=== PATIENT | male | born 1985 | race African-American/Black ===

== ENCOUNTER 2018-01-25 23:05 | Observation (INO) | payer OTHER ==
[~2018-01-25] VITALS: Ht 185.4 cm; Wt 100.0 kg
[~2018-01-25 23:05] MED LIST: DIPH25CA61 IM; HALO5AMP3 IM
[2018-01-26 00:15] LABS: AMPHETAMINE SCREEN, URINE Positive (Negative); BARBITURATE SCREEN, URINE Negative (Negative); BENZODIAZEPINE SCREEN, URINE Negative (Negative); CANNABINOID SCREEN, URINE Positive (Negative); COCAINE SCREEN, URINE Negative (Negative); METHADONE SCREEN, URINE Negative (Negative); OPIATE SCREEN, URINE Positive (Negative)
[2018-01-26 00:29] LABS: MEAN CORPUSCULAR HEMOGLOBIN 30.1 pg (27.5-34.5); MEAN CORPUSCULAR HGB CONC 34.4 g/dL (33.2-36.2); MEAN CORPUSCULAR VOLUME 87.6 fL (81-97); MEAN PLATELET VOLUME 6.8 fL (7.4-10.4); PLATELET COUNT 394 x10^3/uL (130-400); RED BLOOD COUNT 4.74 x10^6/uL (4.38-5.82); RED CELL DISTRIBUTION WIDTH 13.9 % (9.4-14.8)
[2018-01-26 00:33] LABS: ALANINE AMINOTRANSFERASE 40 U/L (12-78); ALBUMIN 3.3 g/dL (3.4-5.0); ANION GAP 7 mmol/L (5-15); CALCIUM 8.9 mg/dL (8.5-10.1); CHLORIDE 103 mmol/L (98-107); CREATININE 0.94 mg/dL (0.7-1.3); SALICYLATE LEVEL 1.7 mg/dL (2.8-20.0)
[2018-01-26 00:38] LABS: ALKALINE PHOSPHATASE 127 U/L (45-117); BILIRUBIN,TOTAL 0.8 mg/dL (0.2-1.0); TOTAL PROTEIN 8.2 g/dL (6.4-8.2)
[2018-01-26 00:41] LABS: ACETAMINOPHEN < 2 mcg/mL (10-30)
[2018-01-26 00:56] LABS: BASOPHILS # (AUTO) 0.17 x10^3/uL (0-0.1); BASOPHILS % (AUTO) 2 % (0-1); EOSINOPHILS % (AUTO) 3 % (1-7); LYMPHOCYTES # (AUTO) 3.42 x10^3/uL (1-3.4); LYMPHOCYTES % (AUTO) 42 % (22-44); MD SCAN; MONOCYTES # (AUTO) 0.84 x10^3/uL (0.2-0.8); MONOCYTES % (AUTO) 10 % (2-9); NEUTROPHILS # (AUTO) 3.47 x10^3/uL (1.8-6.8); NEUTROPHILS % (AUTO) 43 % (42-75)
[2018-01-26] MEDS ORDERED: POTASSIUM CHLORIDE 20 MEQ TAB.ER.PRT PO ONE ×2 (01:00→10:00)
[2018-01-26] MEDS ORDERED: POTASSIUM CHLORIDE 20 MEQ TAB.ER.PRT ONE ×2 (01:42→02:00)
[2018-01-26] MEDS ORDERED: LORazepam 1MG TABLET ONE ×2 (01:42→02:00)
[2018-01-26] MEDS ORDERED: LORazepam 1MG TABLET PO ONE ×2 (02:00→02:30)
[2018-01-26] MEDS ORDERED: ZIPRASIDONE 20 MG INJ IM PRN (08:00)
[2018-01-26] MEDS ORDERED: ZIPRASIDONE 20MG CAPSULE PO PRN (08:00)
[2018-01-26] MEDS ORDERED: QUETIAPINE 25MG TABLET PO PRN (08:00)
[2018-01-26] MEDS ORDERED: BENZTROPINE 1 MG TABLET PO PRN (08:00)
[2018-01-26 08:16] LABS: ANION GAP 7 mmol/L (5-15); CALCIUM 8.7 mg/dL (8.5-10.1); CHLORIDE 104 mmol/L (98-107)
[2018-01-26 08:18] LABS: CREATININE 0.85 mg/dL (0.7-1.3)
[2018-01-26 10:30] VITALS: BP 113/71
[2018-01-26 16:44] VITALS: BP 131/81
[2018-01-26] MEDS: LORazepam 1MG TABLET PO PRN ×2 (16:50→21:58)
[2018-01-26 19:36] VITALS: BP 138/87
[2018-01-27 08:00] VITALS: BP 118/76
[2018-01-27 10:19] VITALS: BP 118/76
[2018-01-27] MEDS: HALOPERIDOL 5 MG TABLET PO PRN (12:44)
[2018-01-27 20:03] VITALS: BP 157/88
[2018-01-27] MEDS: CEPHALEXIN 500 MG CAPSULE PO SCH (20:28)
[2018-01-28] MEDS: CEPHALEXIN 500 MG CAPSULE PO SCH ×4 (06:23→20:35)
[2018-01-28 07:43] VITALS: BP 129/80
[2018-01-28] MEDS: HALOPERIDOL 5 MG TABLET PO PRN (11:22)
[2018-01-28] MEDS: LORazepam 1MG TABLET PO PRN ×2 (13:40→22:54)
[2018-01-28 19:30] VITALS: BP 152/96
[2018-01-29] MEDS: CEPHALEXIN 500 MG CAPSULE PO SCH ×2 (06:27→11:29)
[2018-01-29 07:56] VITALS: BP 143/80
== END 2018-01-29 12:44 ==
LOC: ED 23:59 → EDIP 01-26 06:39 → 2N 01-26 08:45
PROVIDERS: ADMIT Hospitalist; ATTEND Hospitalist
DX: R45.851 Suicidal ideations (principal); F20.0 Paranoid schizophrenia; F32.9 Major depressive disorder, single episode, unspecified; E87.6 Hypokalemia; F29 Unspecified psychosis not due to a substance or known physiological condition; F19.10 Other psychoactive substance abuse, uncomplicated; R74.8 Abnormal levels of other serum enzymes; Z91.19 Patient's noncompliance with other medical treatment and regimen
CPT/HCPCS: 36415; 80048; 80053; 80307; 80329; 85025; G0378; G0480

== ENCOUNTER 2018-03-28 18:36 | Emergency (ER) | payer MEDICAID ==
[~2018-03-28] VITALS: Ht 172.7 cm; Wt 105.0 kg
[2018-03-28] MEDS ORDERED: BUPR-173 PO (18:54)
[2018-03-28] MEDS ORDERED: TRAZ-136 PO (18:54)
[2018-03-28] MEDS ORDERED: TOPI25TA32 PO (18:54)
[2018-03-28] MEDS ORDERED: ONDANSETRON ODT 4 MG PO ONE (19:00)
[2018-03-28] MEDS ORDERED: ALBUTEROL/IPRATROPIUM 2.5MG/0.5MG, 3 ML NPPB ONE (19:00)
[2018-03-28 19:22] LABS: BASOPHILS # (AUTO) 0.04 x10^3/uL (0-0.1); BASOPHILS % (AUTO) 1 % (0-1); EOSINOPHILS # (AUTO) 0.14 x10^3/uL (0-0.4); EOSINOPHILS % (AUTO) 2 % (1-7); LYMPHOCYTES # (AUTO) 2.44 x10^3/uL (1-3.4); LYMPHOCYTES % (AUTO) 36 % (22-44); MD NO; MEAN CORPUSCULAR HEMOGLOBIN 30.6 pg (27.5-34.5); MEAN CORPUSCULAR HGB CONC 34.6 g/dL (33.2-36.2); MEAN CORPUSCULAR VOLUME 88.3 fL (81-97); MEAN PLATELET VOLUME 6.8 fL (7.4-10.4); MONOCYTES # (AUTO) 0.73 x10^3/uL (0.2-0.8); MONOCYTES % (AUTO) 11 % (2-9); NEUTROPHILS # (AUTO) 3.49 x10^3/uL (1.8-6.8); NEUTROPHILS % (AUTO) 51 % (42-75); PLATELET COUNT 268 x10^3/uL (130-400); RED CELL DISTRIBUTION WIDTH 15.5 % (9.4-14.8)
[2018-03-28 19:30] LABS: ALBUMIN 3.5 g/dL (3.4-5.0); ANION GAP 8 mmol/L (5-15); CALCIUM 8.2 mg/dL (8.5-10.1); CHLORIDE 107 mmol/L (98-107); CREATININE 1.03 mg/dL (0.7-1.3)
[2018-03-28] MEDS ORDERED: ONDANSETRON ODT 4 MG ONE (19:37)
[2018-03-28 19:40] VITALS: BP 142/91
== END 2018-03-28 20:09 | disposition home or self-care (01) ==
LOC: ED 19:20
DX: J00 Acute nasopharyngitis [common cold] (principal); J02.9 Acute pharyngitis, unspecified; R11.2 Nausea with vomiting, unspecified; J45.909 Unspecified asthma, uncomplicated
CPT/HCPCS: 36415; 71045; 80048; 82040; 85025; 93005; 94640; 99285; J7620; Q0162

== ENCOUNTER 2018-03-30 17:51 | Emergency (ER) | payer MEDICAID ==
[~2018-03-30] VITALS: Ht 177.8 cm; Wt 102.6 kg
[~2018-03-30 17:51] MED LIST changes: +BUPR-173 PO; +TOPI25TA32 PO; +TRAZ-136 PO
[2018-03-30 18:37] LABS: MEAN CORPUSCULAR HEMOGLOBIN 30.4 pg (27.5-34.5); MEAN CORPUSCULAR HGB CONC 34.1 g/dL (33.2-36.2); MEAN CORPUSCULAR VOLUME 89.3 fL (81-97); MEAN PLATELET VOLUME 7.3 fL (7.4-10.4); PLATELET COUNT 267 x10^3/uL (130-400); RED BLOOD COUNT 5.77 x10^6/uL (4.38-5.82); RED CELL DISTRIBUTION WIDTH 16.2 % (9.4-14.8)
[2018-03-30 18:45] LABS: ALANINE AMINOTRANSFERASE 58 U/L (12-78); ALBUMIN 3.7 g/dL (3.4-5.0); ANION GAP 11 mmol/L (5-15); CALCIUM 8.6 mg/dL (8.5-10.1); CHLORIDE 107 mmol/L (98-107); CREATININE 1.09 mg/dL (0.7-1.3)
[2018-03-30 18:47] LABS: ALKALINE PHOSPHATASE 128 U/L (45-117); BILIRUBIN,TOTAL 0.7 mg/dL (0.2-1.0); SALICYLATE LEVEL < 1.7 mg/dL (2.8-20.0); TOTAL PROTEIN 7.9 g/dL (6.4-8.2)
[2018-03-30 18:49] LABS: ACETAMINOPHEN < 2 mcg/mL (10-30)
[2018-03-30 19:07] LABS: MD YES
[2018-03-30 19:09] LABS: <RBC MORPHOLOGY> NORMAL; EOS#(MANUAL) 0.15 x10^3/uL (0.0-0.4); EOS% (MANUAL) 2 % (1-7); LYMPH#(MANUAL) 2.56 x10^3/uL (1-3.4); LYMPHS% (MANUAL) 35 % (22-44); MONOS#(MANUAL) 0.95 x10^3/uL (0.3-2.7); MONOS% (MANUAL) 13 % (2-9); REACTIVE LYMPHS # (MANUAL) 0.37 x10^3/uL (0-0); REACTIVE LYMPHS % (MANUAL) 5 % (0-0); SEG#(MANUAL) 3.29 x10^3/uL (1.8-6.8); SEGS% (MANUAL) 45 % (42-75)
[2018-03-30 19:10] LABS: <PLATELET ESTIMATE> ADEQUATE; <PLT MORPHOLOGY> NORMAL PLT MORPH
[2018-03-30 20:16] VITALS: BP 133/74
[2018-03-30 20:25] LABS: AMPHETAMINE SCREEN, URINE Positive (Negative); BARBITURATE SCREEN, URINE Negative (Negative); BENZODIAZEPINE SCREEN, URINE Negative (Negative); CANNABINOID SCREEN, URINE Negative (Negative); COCAINE SCREEN, URINE Negative (Negative); METHADONE SCREEN, URINE Negative (Negative); OPIATE SCREEN, URINE Positive (Negative)
[2018-03-30] MEDS ORDERED: TRAZODONE 50MG TABLET PO SCH (21:30)
[2018-03-30] MEDS ORDERED: BUPROPION SR 100 MG TABLET PO SCH (21:30)
[2018-03-30] MEDS ORDERED: TOPIRAMATE 25 MG TABLET PO ONE (21:30)
[2018-03-30] MEDS ORDERED: TRAZODONE 50MG TABLET ONE (22:10)
== END 2018-03-30 22:12 | disposition home or self-care (01) ==
LOC: ED 19:44
DX: F32.9 Major depressive disorder, single episode, unspecified (principal); F25.9 Schizoaffective disorder, unspecified; J45.909 Unspecified asthma, uncomplicated
CPT/HCPCS: 36415; 80053; 80307; 80329; 85025; 99284; G0480

== ENCOUNTER 2018-04-07 23:45 | Observation (INO) | payer MEDICAID ==
[~2018-04-07] VITALS: Ht 177.8 cm; Wt 85.0 kg
[2018-04-08] MEDS ORDERED: OLANZAPINE 10 MG TABLET PO SCH (00:30)
[2018-04-08 00:32] LABS: BASOPHILS # (AUTO) 0.04 x10^3/uL (0-0.1); BASOPHILS % (AUTO) 1 % (0-1); EOSINOPHILS # (AUTO) 0.05 x10^3/uL (0-0.4); EOSINOPHILS % (AUTO) 1 % (1-7); LYMPHOCYTES # (AUTO) 1.88 x10^3/uL (1-3.4); LYMPHOCYTES % (AUTO) 27 % (22-44); MD NO; MEAN CORPUSCULAR HEMOGLOBIN 30.4 pg (27.5-34.5); MEAN CORPUSCULAR HGB CONC 34.6 g/dL (33.2-36.2); MEAN CORPUSCULAR VOLUME 87.8 fL (81-97); MEAN PLATELET VOLUME 7.4 fL (7.4-10.4); MONOCYTES # (AUTO) 0.54 x10^3/uL (0.2-0.8); MONOCYTES % (AUTO) 8 % (2-9); NEUTROPHILS % (AUTO) 64 % (42-75); PLATELET COUNT 285 x10^3/uL (130-400); RED BLOOD COUNT 5.43 x10^6/uL (4.38-5.82); RED CELL DISTRIBUTION WIDTH 15.3 % (9.4-14.8)
[2018-04-08 00:36] LABS: ALBUMIN 3.9 g/dL (3.4-5.0); ANION GAP 10 mmol/L (5-15); CALCIUM 8.7 mg/dL (8.5-10.1); CHLORIDE 102 mmol/L (98-107); CREATININE 1.27 mg/dL (0.7-1.3)
[2018-04-08] MEDS ORDERED: OLANZAPINE 10 MG TABLET ONE (00:36)
[2018-04-08 00:37] LABS: ACETAMINOPHEN < 2 mcg/mL (10-30); SALICYLATE LEVEL < 1.7 mg/dL (2.8-20.0)
[2018-04-08 01:43] LABS: RAPID INFLUENZA A Negative (Negative); RAPID INFLUENZA B Negative (Negative)
[2018-04-08 03:03] LABS: AMPHETAMINE SCREEN, URINE Positive (Negative); BARBITURATE SCREEN, URINE Negative (Negative); BENZODIAZEPINE SCREEN, URINE Negative (Negative); CANNABINOID SCREEN, URINE Positive (Negative); COCAINE SCREEN, URINE Negative (Negative); METHADONE SCREEN, URINE Negative (Negative); OPIATE SCREEN, URINE Positive (Negative)
[2018-04-08] MEDS ORDERED: ACETAMINOPHEN 325 MG TABLET PO PRN (11:00)
[2018-04-08] MEDS ORDERED: GUAIFENESIN/DM 200-20MG, 10ML UDC PO PRN (11:00)
[2018-04-08] MEDS ORDERED: DOCUSATE 100 MG CAPSULE PO PRN (11:00)
[2018-04-08] MEDS ORDERED: BENZTROPINE 1 MG TABLET PO PRN (11:00)
[2018-04-08 12:21] VITALS: BP 145/72
[2018-04-08 18:38] VITALS: BP 126/80
[2018-04-08] MEDS: HALOPERIDOL 5 MG TABLET PO PRN (21:57)
[2018-04-09 08:00] VITALS: BP 145/72
[2018-04-09] MEDS: ONDANSETRON ODT 4 MG PO PRN ×2 (09:02→16:18)
[2018-04-09 18:10] VITALS: BP 138/79
[2018-04-09 19:59] VITALS: BP 121/65
[2018-04-09] MEDS: HALOPERIDOL 5 MG TABLET PO PRN (21:40)
[2018-04-10 07:40] VITALS: BP 124/75
[2018-04-10] MEDS: ONDANSETRON ODT 4 MG PO PRN (08:24)
== END 2018-04-10 18:03 ==
LOC: ED 23:53 → EDIP 04-08 10:57 → 2N 04-08 12:19
PROVIDERS: ADMIT Internal Medicine; ATTEND Internal Medicine
DX: R45.851 Suicidal ideations (principal); R45.850 Homicidal ideations; F12.10 Cannabis abuse, uncomplicated; F15.10 Other stimulant abuse, uncomplicated; F17.200 Nicotine dependence, unspecified, uncomplicated; F25.9 Schizoaffective disorder, unspecified; J45.909 Unspecified asthma, uncomplicated
CPT/HCPCS: 36415; 80048; 80307; 80329; 82040; 85025; 87400; 99284; G0378; Q0162; Q0177; G0480